=== PATIENT | male | born 1945 | race Caucasian/White ===

== ENCOUNTER → 2018-03-15 08:03 | Outpatient (CLI) | payer OTHER, SELFPAY ==
--- NOTE | 2018-03-15 | DI.US.S_ITS ---
PROCEDURE: US ABD AORTA ANEURYSM SCREEN INDICATIONS: ABDOMINAL AORTIC ANEURYSM TECHNIQUE: Real time scanning was performed of the aorta and iliac arteries, with image documentation. COMPARISON: None. FINDINGS: Aorta: Proximal aortic diameter measures 1.7 cm. Mid-aorta measures 1.4 cm. Distal aortic diameter is 1.7 cm. Iliac arteries: Right common iliac artery measures 1.1 cm. Left common iliac artery measures 1.2 cm. IMPRESSION: No aortic aneurysm Dictated by: Constantin Almanza M.D. on 03/15/2018 at 8:57 Approved by: Constantin Almanza M.D. on 03/15/2018 at 8:58
== END ==
PROVIDERS: Family Provider Family Medicine; PCP Family Medicine; Visit Provider Family Medicine
DX: Z13.6 Encounter for screening for cardiovascular disorders (principal)
CPT/HCPCS: 76706

== ENCOUNTER → 2019-05-14 12:20 | Outpatient (CLI) | payer OTHER, SELFPAY ==
--- NOTE | 2019-05-14 | DI.RAD.S_ITS ---
PROCEDURE: XR FOOT RT MIN 3V INDICATIONS: RIGHT FOOT PAIN TECHNIQUE: 3 views of the foot were acquired. COMPARISON: None. FINDINGS: Bones: No fractures or dislocations. No suspicious bony lesions. Persistent TP joint degeneration. Diffuse mid foot degenerative changes and probable intraosseous cyst in the base of the first metatarsal. Diffuse hindfoot spurring. Soft tissues: No tibiotalar joint effusion. Achilles tendon appears normal. IMPRESSION: Diffuse right foot joint degeneration as above. If the patient's pain or other symptoms persist, consider further evaluation with MRI Dictated by: Aric Redding M.D. on 05/14/2019 at 12:49 Approved by: Aric Redding M.D. on 05/14/2019 at 12:52
== END ==
PROVIDERS: PCP Family Medicine; Visit Provider Family Medicine
DX: M79.671 Pain in right foot (principal); M19.071 Primary osteoarthritis, right ankle and foot
CPT/HCPCS: 73630

== ENCOUNTER → 2020-11-13 09:18 | Outpatient (CLI) | payer OTHER, SELFPAY ==
[2020-11-13 10:12] LABS: Add Manual Diff / Slide Review NO; Basophils Absolute Auto 0 /uL (0-100); Basophils Percent Auto 0.4 % (0-2); Eosinophils Absolute Auto 100 /uL (0-450); Eosinophils Percent Auto 1.7 % (2-4); Hematocrit 43.6 % (41-53); Hemoglobin 14.3 g/dL (13.5-17.5); Lymphocytes Absolute Auto 1300 /uL (1100-4500); Lymphocytes Percent Auto 17.7 % (25-40); Mean Corpuscular HGB Conc 32.9 % (30-36); Mean Corpuscular Hemoglobin 28.9 PG (26-34); Mean Corpuscular Volume 87.9 fL (80-100); Monocytes Absolute Auto 600 /uL (0-900); Monocytes Percent Auto 7.7 % (3-14); Neutrophils Absolute Auto 5300 /uL (1500-7000); Neutrophils Percent Auto 72.5 % (50-75); Platelet Count 205 X10^3/uL (150-400); Red Blood Cell Count 4.96 X10^6/uL (4.5-5.9); Red Cell Distribution Width 14.8 % (11.6-14.8); White Blood Cell Count 7.3 X10^3/uL (4.5-11.0)
[2020-11-13 10:43] LABS: Alanine Aminotransferase 25 IU/L (<50); Albumin Globulin Ratio 1.7 (1.0-2.8); Alkaline Phosphatase 77 U/L (38-126); Aspartate Aminotransferase 28 IU/L (17-59); BUN Creatinine Ratio 40.6 (6-22); Bilirubin Total 1.7 mg/dL (0.2-1.3); Blood Urea Nitrogen 28 mg/dL (9-20); Calcium 9.4 mg/dL (8.4-10.2); Carbon Dioxide 27 mmol/L (22-32); Chloride 107 mmol/L (98-107); Cholesterol 110 mg/dL (140-199); Estimated Glomerular Filt Rate > 60.0 mL/min (>60); Globulin 2.4 g/dL (1.7-4.1); Glucose 101 mg/dL (80-110); HDL Cholesterol 46 mg/dL (40-60); HEMOLYSIS < 15 (0-50); LDL Cholesterol Calculated 57 mg/dL (<100); Potassium 4.5 mmol/L (3.4-5.1); Sodium 140 mmol/L (137-145); Total Protein 6.4 g/dL (6.3-8.2); Triglycerides 37 mg/dL (35-150)
[2020-11-13 11:09] LABS: Thyroid Stimulating Hormone 1.98 uIU/mL (0.47-4.68)
== END ==
PROVIDERS: PCP Family Medicine; Referring Provider Family Medicine; Visit Provider Family Medicine
DX: Z00.00 Encounter for general adult medical examination without abnormal findings (principal); I10 Essential (primary) hypertension; E78.5 Hyperlipidemia, unspecified
CPT/HCPCS: 36415; 80053; 80061; 84443; 85025

== ENCOUNTER → 2021-12-12 11:40 | Outpatient (CLI) | payer OTHER, SELFPAY ==
--- NOTE | 2021-12-12 11:45 | DI.RAD.S_ITS ---
PROCEDURE: XR FOOT RT MIN 3V INDICATIONS: MASS IN ARCH OF FOOT TECHNIQUE: 3 views of the foot were acquired. COMPARISON: [facility], CR, XR FOOT RT MIN 3V, 05/14/2019, 13:25. FINDINGS: Bones: No fractures or dislocations. Pes planus. Moderate arthrosis of the 1st metatarsophalangeal and tarsometatarsal articulations with osteophytosis and sclerosis of the opposing articular surfaces. Osteophytosis of the tibiotalar and talonavicular articulation. Persistent fibrocystic change of the base of the 1st metatarsal. Soft tissues: Small tibiotalar joint effusion. IMPRESSION: Foot degeneration as detailed above. Dictated by: Brenton Reyes M.D. on 12/12/2021 at 13:48 Approved by: Brenton Reyes M.D. on 12/12/2021 at 13:50
== END ==
PROVIDERS: PCP Family Medicine; Referring Provider Family Medicine; Visit Provider Family Medicine
DX: M19.071 Primary osteoarthritis, right ankle and foot (principal); R22.41 Localized swelling, mass and lump, right lower limb
CPT/HCPCS: 73630

== ENCOUNTER → 2022-02-07 09:56 | Outpatient (CLI) | payer OTHER, SELFPAY ==
[2022-02-07 11:03] LABS: COVID19 -Nasal RAPID Negative (Negative)
== END ==
PROVIDERS: PCP Family Medicine; Visit Provider Surgery
DX: Z20.822 Contact with and (suspected) exposure to COVID-19 (principal); Z01.812 Encounter for preprocedural laboratory examination
CPT/HCPCS: 87635; C9803

== ENCOUNTER → 2023-09-24 11:29 | Outpatient (CLI) | payer OTHER, SELFPAY ==
--- NOTE | 2023-09-24 11:32 | DI.RAD.S_ITS ---
PROCEDURE: XR CHEST 2V INDICATIONS: DYSPENA ON EXERTION TECHNIQUE: 2 views of the chest were acquired. COMPARISON: [facility], , CHEST 2 VIEW, 07/17/2011, 9:17. FINDINGS: Surgical changes and devices: None. Lungs and pleura: Lungs are clear. No pleural effusions or pneumothorax. Mildly increased bilateral pleural calcifications. Mediastinum: Mediastinal contours are normal. Heart size is normal. Bones and chest wall: No suspicious bony abnormalities. Soft tissues appear unremarkable. Degenerative changes of the spine. Degenerative changes of the bilateral glenohumeral joints. IMPRESSION: 1. No acute cardiopulmonary process. 2. Mildly increased bilateral pleural calcifications compared to chest radiograph did dated July 17, 2011, likely related to prior asbestos exposure. If clinical symptoms persist, consider a CT of the chest for further evaluation. Dictated by: Lupe Ni M.D. on 09/24/2023 at 15:23 Approved by: Lupe Ni M.D. on 09/24/2023 at 15:25
== END ==
PROVIDERS: PCP Family Medicine; Referring Provider Family Medicine; Visit Provider Family Medicine
DX: J94.8 Other specified pleural conditions (principal); R06.09 Other forms of dyspnea
CPT/HCPCS: 71046

== ENCOUNTER → 2023-10-05 06:48 | Outpatient (CLI) | payer OTHER, SELFPAY ==
--- NOTE | 2023-10-05 07:19 | DI.ECHO.S_ITS ---
[facility] +---------+ : : [address] : [address] [address] : : : : [id number] : : : : Phone: [phone]+ Echocardiogram Report + + :Name: VERONICA MILLS Study Date: 10/05/2023 Height: 68 in : :[facility] ReadingLocation: Weight: 211 lb : : Gender: Male BSA: 2.1 m2 : :: 1945 Age: 78 yrs BP: 150/74 mmHg: :Reason For Study: HYPERTENSION, DYSPNEA ON EXERTION : :Ordering Physician: GUZMAN, : :ROLANDO Performed By: Blanche Mendoza : :Referring: ROLANDO HINDS : + + Interpretation Summary The left ventricle is normal in size. Left ventricular systolic function appears normal without focal wall motion abnormalities. The ejection fraction is estimated to be 65-70%. Diastolic parameters suggest probable normal left ventricular diastolic function and normal filling pressures. The right ventricle is mildly dilated. The right ventricular systolic function is normal. The right ventricular systolic pressure is estimated to be at least 37 mmHg based on an estimated right atrial pressure of 3 mm Hg. The left atrium is mildly dilated. The right atrium is borderline dilated. There is mild mitral regurgitation. There is no other significant valvular heart disease. The aortic root is normal size. There is a trivial pericardial effusion noted. Procedure: A two-dimensional transthoracic echocardiogram with color flow and Doppler was performed. The study quality was technically adequate. There is no prior echocardiogram noted for this patient. The heart rate ranged between 49-75 bpm during the study. Left Ventricle: The left ventricle is normal in size. Left ventricular wall thickness is at the upper limits of normal. Left ventricular systolic function appears normal without focal wall motion abnormalities. The ejection fraction is estimated to be 65-70%. Diastolic parameters suggest probable normal left ventricular diastolic function and normal filling pressures. Right Ventricle: The right ventricle is mildly dilated. The right ventricular systolic function is normal. Atria: The left atrium is mildly dilated. The right atrium is borderline dilated. There is no Doppler evidence for an interatrial shunt. Mitral Valve: The mitral valve is normal in structure and function. There is mild mitral regurgitation. Aortic Valve: The aortic valve is trileaflet. The aortic valve opens well. There is no aortic valve stenosis. No aortic regurgitation is present. Tricuspid Valve: The tricuspid valve is normal in structure and function. There is mild tricuspid regurgitation. The right ventricular systolic pressure is estimated to be at least 37 mmHg based on an estimated right atrial pressure of 3 mm Hg. Pulmonic Valve: The pulmonic valve leaflets are thin and pliable; valve motion is normal. There is no pulmonic valvular regurgitation. There is no other significant valvular heart disease. Great Vessels: The aortic root is normal size. The dimensions of the ascending aorta are normal. The IVC is of normal diameter and collapses greater than 50% with a sniff. This suggests a low right atrial pressure of 3 mm Hg. Pericardium/ Pleura There is a trivial pericardial effusion noted. There is no pleural effusion. MMode/2D Measurements & Calculations LVIDd: 5.5 cm LVOT diam: 2.0 cm LVIDs: 3.3 cm Ao root diam: 3.8 cm FS: 39.7 % asc Aorta Diam: 3.4 cm IVSd: 1.1 cm Ao Arch Diam (Prox Trans): 2.3 cm LVPWd: 1.0 cm LV walsh. diameter/BSA (cm/m^2): 2.6 LV sys. diameter/BSA (cm/m^2): 1.6 LA A2 area: 24.5 cm2 RA long axis: 6.0 cm LA A4 area: 25.0 cm2 RA area: 22.8 cm2 LA length (vol): 6.5 cm RA vol: 73.2 ml LA vol: 80.3 ml RA : 35.0 ml/m2 LA vol index: 38.4 ml/m2 IVC diam: 1.8 cm RVD1 (basal): 4.3 cm TAPSE: 2.0 cm Doppler Measurements & Calculations Ao V2 max: 163.4 cm/sec LVOT Max Danny: 131.6 cm/sec Ao V2 mean: 117.0 cm/sec LV V1 max P.9 mmHg Ao max P.7 mmHg LV V1 VTI: 30.6 cm Ao mean P.1 mmHg FREDDY(I,D): 2.5 cm2 Ao V2 VTI: 38.3 cm FREDDY(V,D): 2.5 cm2 sev ratio: 0.80 FREDDY indexed to BSA (cm^2/m^2): 1.2 MV E max danny: 95.0 cm/sec TR max danny: 289.9 cm/sec MV A max danny: 90.5 cm/sec TR max P.6 mmHg MV E/A: 1.0 PA V2 max: 103.1 cm/sec Med Peak E' Danny: 6.4 cm/sec PA V2 mean: 71.6 cm/sec E/E' med: 14.8 PA mean P.3 mmHg Lat Peak E' Danny: 7.5 cm/sec PA pr(Accel): 32.8 mmHg E/E' lat: 12.7 E/e' average: 13.8 MV dec time: 0.28 sec MVA(VTI): 2.3 cm2 MV V2 mean: 64.8 cm/sec SV(LVOT): 94.6 ml MV mean P.0 mmHg MV V2 VTI: 40.4 cm Reading Physician:09:11 AM
== END ==
PROVIDERS: PCP Family Medicine; Referring Provider Family Medicine; Visit Provider Family Medicine
DX: I08.1 Rheumatic disorders of both mitral and tricuspid valves (principal); I10 Essential (primary) hypertension; R06.09 Other forms of dyspnea; R60.1 Generalized edema
CPT/HCPCS: 93306